=== PATIENT | female | born 1970 | race Caucasian/White ===

== ENCOUNTER 2019-05-16 13:17 | Outpatient (REF) | payer MEDICAID, SELFPAY ==
[2019-05-16 18:44] LABS: Anion Gap 11.6 mmol/L (3-11); BUN 9 mg/dL (7-18); CO2 25.4 mmol/L (21.0-32.0); CREATININE 0.66 mg/dL (0.55-1.02); Calcium 8.6 mg/dL (8.5-10.1); Chloride 105 mmol/L (98-107); Glucose 86 mg/dL (70-100); Potassium 4.4 mmol/L (3.5-5.1); Sodium 142 mmol/L (136-145)
== END 2019-05-16 13:37 ==
LOC: NCHCN 13:17
PROVIDERS: PCP Family Medicine; Visit Provider Family Medicine
DX: I10 Essential (primary) hypertension (principal)
CPT/HCPCS: 80048

== ENCOUNTER 2019-09-15 11:05 | Outpatient (CLI) | payer MEDICAID, SELFPAY ==
--- NOTE | 2019-09-15 10:05 | DI.RAD_ITS ---
EXAM: XR CHEST 2V PA LATERAL CLINICAL HISTORY: COUGH X 1 WEEK WITH ELEVATED TEMPERATURE TODAY, R05. TECHNIQUE: 2D digital imaging was performed. COMPARISON: No exams were available for comparison FINDINGS: LUNGS: Clear. No pleural abnormality seen. HEART: Normal. MEDIASTINUM: Normal. OTHER FINDINGS:Normal. IMPRESSION: No acute pulmonary findings.
== END 2019-09-15 11:25 ==
PROVIDERS: PCP Family Medicine; Visit Provider Nurse Practitioner Family
DX: R05 Cough (principal); R50.9 Fever, unspecified
CPT/HCPCS: 71046

== ENCOUNTER 2020-05-25 11:22 | Outpatient (REF) | payer MEDICAID, SELFPAY ==
[2020-05-25 15:36] LABS: Bilirubin Negative (Negative); Blood Small (Negative); Clarity Clear (Clear); Glucose Negative (Negative); Ketones Negative (Negative); Leukocyte Esterase Negative (Negative); Nitrite Negative (Negative); Specific Gravity 1.015 (1.005-1.025); Urobilinogen 0.2 EU/dL (Up TO 0.2)
[2020-05-25 15:51] LABS: WBC Negative HPF (0-5)
[2020-05-25 15:52] LABS: Bacteria Rare HPF (Negative); C & S Indicated? No; Crystals Negative HPF (Negative); Epithelial Cells Many HPF (Negative); Mucus Negative (Negative); RBC 0-2 HPF (0-2)
[2020-05-25 16:12] LABS: Anion Gap 6.9 mmol/L (3-11); BUN 11 mg/dL (7-18); CO2 27.1 mmol/L (21.0-32.0); CREATININE 0.63 mg/dL (0.55-1.02); Calcium 9.1 mg/dL (8.5-10.1); Calculated LDL 158 mg/dL (<100); Chloride 105 mmol/L (98-107); Cholesterol 235 mg/dL (<200); Glucose 110 mg/dL (74-106); HDL Cholesterol 35 mg/dL (40-60); Potassium 4.5 mmol/L (3.5-5.1); Sodium 139 mmol/L (136-145); TSH (W/Ref FT4) 1.03 uIU/mL (0.36-3.74); Triglyceride 211 mg/dL (<150)
[2020-05-25 16:19] LABS: Hemoglobin A1C 5.8 % (<5.7)
[2020-05-28 10:47] LABS: Hepatitis C Ab w Rflx HCV PCR Negative (Negative)
== END 2020-05-25 11:42 ==
LOC: NCHCN 11:22
PROVIDERS: PCP Family Medicine; Visit Provider Family Medicine
DX: I10 Essential (primary) hypertension (principal); E04.2 Nontoxic multinodular goiter; Z13.1 Encounter for screening for diabetes mellitus; Z13.220 Encounter for screening for lipoid disorders; Z11.59 Encounter for screening for other viral diseases; R31.21 Asymptomatic microscopic hematuria
CPT/HCPCS: 80048; 80061; 86803; 81003; 81015; 83036; 84443

== ENCOUNTER 2020-08-06 03:57 | Outpatient (CLI) | payer MEDICAID, SELFPAY ==
[2020-08-07 11:09] LABS: SARS-CoV-2 RNA Source Nasal/Nares
[2020-08-07 11:10] LABS: SARS-CoV-2 RNA Not Detected (NotDetected)
== END 2020-08-06 04:17 ==
PROVIDERS: PCP Family Medicine; Visit Provider Surgery
DX: Z11.59 Encounter for screening for other viral diseases (principal); Z01.818 Encounter for other preprocedural examination
CPT/HCPCS: U0003

== ENCOUNTER 2020-08-09 09:02 | Day surgery (SDC) | payer MEDICAID, SELFPAY ==
[2020-08-09 09:16] VITALS: BP 135/87; PULSE 99; RESP 20; TEMP 36.4; O2SAT 96
[2020-08-09] MEDS: Lactated Ringers 1,000 ML 80 ML IV (09:49)
--- NOTE | 2020-08-09 10:48 | BOWEL_PTH ---
PATIENT: Sugey Walls LOC: [facility] U#:[id number] AGE/SX: 50/F ROOM: RE08/09/[address]: Katia Chan : 1970 BED: DIS: 08/09/2020 SPEC #: [id number] RECD: 08/09/20 13:06 STATUS: JUS RE #: [id number] NISHA: 08/09/20 10:[address]: Katia Chan DEPT: Surgical Specimen RECD BY: Vandana Disla ENTERED: 08/09/20 13:06 SP TYPE: Bowel OTHR DR: Alfredo Szymanski Tissues: 1 - BIOPSY BOWEL Procedures: GROSS AND MICRO LEVEL 4 Comments: [id number] ([id number] [facility] [place]#)
--- NOTE | 2020-08-09 11:17 | PDOC.DSDIS_ITS ---
Discharge Plan Disposition Patient Disposition: HOME Condition: Good Discharge Details Reason For Visit: colon Attending Provider: Katia Chan Primary Care Provider: Alfredo Szymanski [place] Meds and New Rx's Prescriptions: Continued cetirizine 10 mg tablet 10 mg PO DAILY RF: 0 folic acid 1 mg tablet 1 mg PO DAILY RF: 0 cholecalciferol (vitamin D3) 5,000 UNIT tablet 5,000 unit PO DAILY RF: 0 cyclobenzaprine 10 MG tablet 10 mg PO HS RF: 0 acetaminophen 500 MG tablet 500 mg PO Q6H PRN RF: 0 gabapentin 600 MG tablet 1 tab PO TID 30 Days Qty: 90 RF: 5 venlafaxine [Effexor XR] 150 mg capsule,extended release 24hr 150 mg PO DAILY RF: 0 venlafaxine 75 mg capsule,extended release 24hr 75 mg PO DAILY RF: 0 propranolol 20 mg tablet 20 mg PO BID RF: 0 cyproheptadine 4 mg tablet 4 mg PO BID-TID PRNRF: 0 Aimovig Autoinjector 70 mg/mL auto-injector 70 mg subcut QMONTH RF: 0 riboflavin (vitamin B2) [Vitamin B-2] 100 mg tablet 100 mg PO QID RF: 0 magnesium 250 mg tablet 250 mg PO DAILY RF: 0 ibuprofen 800 mg tablet 800 mg PO TID RF: 0 fluticasone propionate [Flonase Allergy Relief] 50 mcg/actuation spray,suspension 1 spray NS DAILY RF: 0 meclizine [Antivert] 25 MG tablet 25 mg PO TID PRN (Reason: Dizziness) Qty: 10 RF: 0 ondansetron 4 MG tablet,disintegrating 4 mg PO QID PRN (Reason: Nausea) Qty: 15 RF: 0 Discontinued polyethylene glycol 3350 17 gram/dose powder 238 g PO ONCE Qty: 238 RF: 0 bisacodyl [Dulcolax (bisacodyl)] 5 mg tablet,delayed release (DR/EC) 5 mg PO ONCE Qty: 4 RF: 0 Discharge Instructions Additional Instructions: Findings: x3 very small polyp in rectal area. Follow up: will send a letter in 2-3 wks w/ the results of the polyp pathology and when to repeat the scope (5-10 yrs). Please call if you develop: fevers >101.5 Nausea or Vomiting Abdominal pain that is not transient DAY SURGERY UNIT POST COLONOSCOPY INSTRUCTIONS 1. Because there will be medication in your system for the next 24 hours, you may feel a little sleepy. Your coordination will be affected. Therefore: a. Do not drive or operate dangerous equipment for 24 hours. b. Do not drink alcohol beverages for 24 hours (not even beer). c. Plan to go home and rest for the day. 2. Generally there are no restrictions on your activity after a day or so has gone by, but you may feel a bit fatigued for a few days. 3 After you arrive home you may have a light meal and return to a normal diet as you can tolerate it without feeling sick to your stomach. 4. After surgery, you may feel pain or discomfort. This should be only transient, but if it persists please contact your doctor. 5. If there are any questions regarding the findings of your procedure, please feel free to contact your doctor. 6. If you are unable to contact your doctor with a problem, contact the hospital at [phone]. 7. Continue all your regular medications unless directed otherwise. I understand the above instructions and have no questions. Signature of Patient or Responsible Adult Escort Date/Time Name of Responsible Adult Escort Signature of Nurse Date/Time Activity:: no lifting over 20#'s or strenuous activity x 24 hrs Diet:: small light meals x 24 hrs Discharge Orders Discharge Orders: Discharge Order (Routine); Ordered 08/09/20 Ordered By: Katia Chan DS: Diagnosis Discharge Diagnosis (1) Colon cancer screening: Status: Acute
--- NOTE | 2020-08-09 11:21 | W.COLOREPORT ---
Date of service: 08/09/20 Time of Service: 11:21 Colonoscopy Report Date of procedure: 08/09/20 Pre-op diagnosis general: CRC screen Post-op diagnosis procedure note: other (x3 sm polyps HP VS adenomatous ) Procedure: ce cold polypcetomy x 3 Surgeon: Katia Chan Anesthesia proc note operative: GETA Estimated blood loss (mL): 1 Pathology: none sent Complications: None Disposition: same day Prep: Miralax/Dulcolax Retraction Time: 12 mins Procedure Description: After informed consent was obtained the patient was taken to the procedure room and placed in a left decubitous position. Monitors were applied and a time out was done. The patients name, date of , procedure, allergies to medications and metal in their body was reviewed. The patient was then sedated. Once sedated and comfortable a rectal exam was done. External exam shows external hemorrhoidal tags. Internal exam revealed a normal sphincter tone and no palpable masses. The scope was then introduced and retrofelexed. No internal hemorrhoids were identified. The scope was then advanced to the cecum w/polyps difficulty. The TI and appendiceal orifice were identified. The prep was good. The scope was then slowly retracted over 12 minutes back into the rectum. Polyps were removed: x3 small polyps removed in rectum-20cm region. These probably were HP's. No AVM's or diverticula. The Mucosa is otherwise pink and healthy. The scope was removed and the patient was woken up and taken back to Same day surgery in stable condition. The patient tolerated the procedure well and there were no immediate complications. Follow up: The patient should follow up in 5-10 years (path pd), unless they develop changes in bowel habits or other new gastrointestinal complaints.
[2020-08-09 11:38] VITALS: BP 112/79; PULSE 84; RESP 16; TEMP 36.8; O2SAT 98
== END 2020-08-09 12:20 | disposition home or self-care (01) ==
PROVIDERS: PCP Family Medicine; Visit Provider Surgery
PROC: 0DJD8ZZ Inspection of Lower Intestinal Tract, Via Natural or Artificial Opening Endoscopic (ICD-10-PCS; CPT 45378; principal; 2020-08-09 10:00)
DX: Z12.11 Encounter for screening for malignant neoplasm of colon (principal); K62.1 Rectal polyp; I10 Essential (primary) hypertension
CPT/HCPCS: 45380; 88305; J2001

== ENCOUNTER 2021-05-29 16:24 | Outpatient (REF) | payer MEDICAID, SELFPAY ==
[2021-05-29 19:57] LABS: BUN 11 mg/dL (7-18); CREATININE 0.8 mg/dL (0.55-1.02); Calcium 9.2 mg/dL (8.5-10.1); Chloride 106 mmol/L (98-107); Glucose 106 mg/dL (74-106); Potassium 4.5 mmol/L (3.5-5.1); Sodium 142 mmol/L (136-145)
[2021-05-29 20:02] LABS: Hemoglobin A1C 5.6 % (<5.7)
== END 2021-05-29 16:25 | disposition home or self-care (01) ==
LOC: NCHCN 16:24
PROVIDERS: PCP Family Medicine; Referring Provider Family Medicine; Visit Provider Family Medicine
DX: R73.09 Other abnormal glucose (principal); I10 Essential (primary) hypertension
CPT/HCPCS: 80048; 83036

== ENCOUNTER 2021-07-19 00:24 | Outpatient (CLI) | payer MEDICAID, SELFPAY ==
--- NOTE | 2021-07-19 | DI.MAMMO_ITS ---
Exam(s) MAMMO SCREENING EXAM: MAMMO SCREENING CLINICAL HISTORY: SCREENING, [facility],Z00.00. TECHNIQUE: Bilateral full field digital CC and MLO mammographic images were obtained with 3D tomosyn thesis and utilizing computer aided detection (CAD). COMPARISON: Prior outside mammogram performed June 2018 FINDINGS: There are no new spiculated masses nor malignant appearing microcalcification groups. There is no significant architectural distortion nor skin thickening-retraction. IMPRESSION: No radiographic evidence of malignancy. BI-RADS Category 1 - Negative Breast Density - Category B - Scattered areas of fibroglandular density Breast density Category C or D implies that the patient has dense breast tissue. Dense breast tissue can make it harder to find cancer on a mammogram. Dense breast tissue is also associated with an incr eased risk of breast cancer. This information about the result of the mammogram report was provided to the patient to raise their awareness. Use this report when you speak with the patient about their risks for breast cancer, which includes their family history. At that time, you may recommend additional screening tests (Ultrasoun d or MRI) as these tests may add significant information. A negative radiographic report should not delay biopsy if a dominant or clinically suspicious mass is present. Up to ten percent of cancers are not identified on mammography. A negative report may reinforce clinical impression. Adenosis and dense breasts may obscure an underlying neoplasm. False positive reports average 6 to 10%. Patient will receive a letter notifying them of these results.
== END 2021-07-19 00:44 ==
PROVIDERS: PCP Family Medicine; Visit Provider Family Medicine
DX: Z12.31 Encounter for screening mammogram for malignant neoplasm of breast (principal)
CPT/HCPCS: 77063; 77067

== ENCOUNTER 2022-01-07 00:36 | Outpatient (CLI) | payer MEDICAID, SELFPAY ==
--- NOTE | 2022-01-07 | DI.US_ITS ---
Exam(s) US THYROID EXAM: US THYROID CLINICAL HISTORY: MULTINODULAR THYROID GOITER E04.2, 2-3 MONTHS INCREASED FULLNESS LT. TECHNIQUE: Ultrasound thyroid performed using standard protocol. COMPARISON: US THYROID ULTRASOUND from 11/10/2011 FINDINGS: RIGHT THYROID LOBE: Measures 1.2 cm AP x 1.4 cm wide x 4.1 cm craniocaudal The right lobe contains 3 findings, all below the mid level of the gland. Nodule #1 . This is the largest and most inferiorly located in the right lobe . Size: Measures 0.9 x 0.6 x 0.7 cm Composition: Solid-2 point Echogenicity: Hypoechoic-2 points Shape: Wider than taller-0 points Margin: Ill-defined (due to the calcification) -0 points Echogenic Foci: Peripheral calcification 2 point Total Points for this nodule: 6 ACR Ti-Rads Category: TR4. This nodule can be followed given that it measures less than 1.5 cm. Nodule #2 . this is located just above the nodule described above and is similar in appearance with peripheral calcification but slightly smaller. Size: Measures 0.5 x 0.5 x 0.3 cm Composition: Solid-2 point Echogenicity: Hypoechoic- 2 points Shape: Wider than taller- 0 points Margin: Ill-defined due to calcification-0 points Echogenic Foci: Peripheral calcification-2 point Total points for this nodule: 6 ACR Ti-Rads Category: TR4. This nodule can be followed given that it measures less than 1.5 cm. Nodule #3 . This nodule in the right lobe is not calcified. It is solid and round. Size: Measures 0.5 x 0.5 x 0.3 cm Composition: Solid or almost completely solid- 2 points Echogenicity: Hypoechoic-2 points Shape: Wider than taller- 0 points Margin: Smooth-0 points Echogenic Foci: None-0 point Total points for this nodule: 4 ACR Ti-Rads Category: 4. This nodule can be followed. ISTHMUS: Normal thickness. There are no nodules in the isthmus. LEFT THYROID LOBE: Measures 1 cm AP x 1.4 wide x 4.3 cm craniocaudal Solitary solid nodule described below Nodule #1 Size: Measures 0.9 x 0.5 x 0.6 cm Composition: Solid-2 points Echogenicity: Hypoechoic-2 points Shape: Taller than wider-3 points Margin: Smooth-0 points Echogenic Foci: None-0 points Total points for this nodule: 7 ACR Ti-Rads Category: 5This nodule can be followed as it measures les s than 1 cm LYMPH NODES: There is no significant adenopathy. IMPRESSION: 1. Four nodules as described above, 3 in the right lobe and 1 in the left lobe. Classification for e ach of these nodules as described above. These nodules can be followed. Recommend repeat ultrasound in 1 year, earlier if clinically indicated. 2. There is no significant lymphadenopathy. DATA REPOSITORY:
== END 2022-01-07 00:56 ==
PROVIDERS: PCP Family Medicine; Visit Provider Family Medicine
DX: E04.2 Nontoxic multinodular goiter (principal)
CPT/HCPCS: 76536

== ENCOUNTER 2022-04-14 15:36 | Outpatient (REF) | payer MEDICAID, SELFPAY ==
--- NOTE | 2022-04-14 14:38 | PAPFT_PTH ---
PATIENT: Sugey Walls LOC: [facility] U#:[id number] AGE/SX: 51/F ROOM: RE04/14/[address]: Kezia Rojas : 1970 BED: DIS: 04/14/2022 SPEC #: [id number] RECD: 04/15/22 12:46 STATUS: JUS REQ #: [id number] NISHA: 04/14/22 14:[address]: Kezia Rojas DEPT: [facility] Cytology RECD BY: Vandana Disla ENTERED: 04/15/22 12:47 SP TYPE: PAPFT OTHR DR: Alfredo Szymanski Tissues: 1 - CX/ENDOCX FOR PAP SMEARS Procedures: PAP THIN PREP/UVM Screening HPV DNA PROBE Comments: [id number]
== END 2022-04-14 15:37 | disposition home or self-care (01) ==
LOC: NCHCN 15:36
PROVIDERS: PCP Family Medicine; Visit Provider Family Medicine
DX: Z01.419 Encounter for gynecological examination (general) (routine) without abnormal findings (principal)
CPT/HCPCS: 88142; 87624

== ENCOUNTER 2022-05-21 12:06 | Emergency (ER) | payer MEDICAID, SELFPAY ==
[2022-05-21] VITALS (33 sets, daily range): BP systolic 82–136; BP diastolic 43–83; PULSE 53–104; RESP 16; TEMP 36.5–36.6; O2SAT 91–99
[2022-05-21] MEDS: Normal Saline 500 ML 1000 ML IV ×2 (12:56→15:10)
[2022-05-21] MEDS: Prochlorperazine 10 MG/2 ML VIAL IVP (12:56)
[2022-05-21] MEDS: diphenhydrAMINE 50 MG/ML VIAL 25 MG IVP (12:56)
[2022-05-21 13:17] LABS: ALT 40 U/L (14-59); AST 21 U/L (15-37); Albumin 3.7 g/dL (3.4-5.0); Alkaline Phosphatase 71 U/L (46-116); Anion Gap 2.3 mmol/L (3-11); BUN 15 mg/dL (7-18); Bilirubin, Total 0.3 mg/dL (0.2-1.0); CO2 28.7 mmol/L (21.0-32.0); CREATININE 0.7 mg/dL (0.55-1.02); Calcium 8.5 mg/dL (8.5-10.1); Chloride 104 mmol/L (98-107); Glucose 129 mg/dL (74-106); Potassium 3.6 mmol/L (3.5-5.1); Sodium 135 mmol/L (136-145); Total Protein 7.5 g/dL (6.4-8.2)
--- NOTE | 2022-05-21 14:01 | W.ED.GENAD ---
Discharge Plan Disposition Patient Disposition: HOME Condition: Stable Discharge Details Clinical Impression: Migraine, Dizziness Primary Care Provider: Alfredo Szymanski ED Provider: Colten Leos Home Meds and New Rx's Prescriptions: Continued cetirizine 10 mg tablet 10 mg PO DAILY folic acid 1 mg tablet 1 mg PO DAILY cholecalciferol (vitamin D3) 5,000 UNIT tablet 5,000 unit PO DAILY acetaminophen 500 MG tablet 500 mg PO Q6H PRN PRN venlafaxine [Effexor XR] 150 mg capsule,extended release 24hr 150 mg PO DAILY propranolol 20 mg tablet 20 mg PO BID cyproheptadine 4 mg tablet 4 mg PO BID-TID PRN Aimovig Autoinjector 70 mg/mL auto-injector 70 mg subcut QMONTH riboflavin (vitamin B2) [Vitamin B-2] 100 mg tablet 100 mg PO DAILY magnesium 250 mg tablet 250 mg PO DAILY tizanidine 4 mg tablet 1 tab PO HS Label Comments: TAKE ONE TABLET BY MOUTH AT BEDTIME gabapentin 600 MG tablet 1 tab PO BID Rx Instructions: no abrupt cessation sumatriptan succinate 100 mg tablet 1 tab PO PRN PRN fluticasone propionate [Flonase Allergy Relief] 50 mcg/actuation spray,suspension 2 spray NS DAILY meclizine [Antivert] 25 MG tablet 25 mg PO TID PRN (Reason: Dizziness) Qty: 10 0RF Label Comments: has not needed ondansetron 4 MG tablet,disintegrating 4 mg PO QID PRN (Reason: Nausea) Qty: 15 0RF Discontinued cyclobenzaprine 10 MG tablet 10 mg PO HS Label Comments: changed by provider venlafaxine 75 mg capsule,extended release 24hr 75 mg PO DAILY ibuprofen 800 mg tablet 800 mg PO TID Label Comments: does not take Discharge Instructions Instructions: Migraine Headache (ED), Dizziness (ED) Additional Instructions: You received Compazine today. I am concerned that you had adverse reaction to this that lower your blood pressure. Please be sure to alert future caregivers of this potential adverse reaction. Please follow-up with your neurologist. Call tomorrow to arrange timely follow-up. Please contact your primary care physician to arrange follow-up. Return to the ER immediately for any worsening or new concerning symptoms. Referrals: Alfredo Szymanski [Primary Care Provider] - Discharge Data Discharge Date/Time-TO BE ENTERED AT DEPARTURE: 05/21/22 17:40 Medical Decision Making 1400 -- 52-year-old female with history of migraines with associated dizziness, followed by [facility] neurology, here with severe migraine with associated dizziness. Plan to treat with compazine IV and benadryl IV. Will give IVF bolus. 1530 -- Patient persistently hypotensive after compazine - suspect side effect of medication. Patient mentating well. Notes improved dizziness. Will give additional IVF bolus. Will check EKG. -- EKG was reviewed and interpreted by me: Please see report. Nondiagnostic. -- Patient was reassessed multiple times. Blood pressure improved. Patient was made aware of potential side effect of Compazine. Patient noted significant improvement in headache but requesting occipital block. Patient provided informed consent to occipital block and procedure was performed without complication, please see procedure note. Patient noted significant improvement after occipital block. Plan for discharge with outpatient follow-up with her neurologist. Disposition decision was made weighing the risks and benefits of hospitalization versus outpatient treatment, the risk for further decompensation, and the patient's wishes. The patient was stable and requested discharge. Prior to discharge, my usual and customary return precautions were reviewed with the patient - this included follow-up instructions and reason to return to the emergency department if condition worsens, does not improve as expected, or other new concerns arise. Lab Data Lab results reviewed: Yes I reviewed the patient's lab results. HPI General Mode of arrival: ambulatory. Date/Time Provider Initiated Documentation: 05/21/22 12:21. Limitations to Documentation: no limitations. Information obtained by: patient. HPI Narrative: 52-year-old female with history of migraine migraines at present with headache and vertigo, here with chief complaint of acute migraine. Patient notes she has had headache for the past 5 days. Patient describes pressure in her posterior head with associated dizziness. She states symptoms are exactly the same as prior migraines. She notes that typically her migraines respond to prescribed medications including Imitrex but sometimes are refractory as is the case today. Since the last time she had a headache this severe was about a year ago. Patient is followed by neurology at [facility] for her migraines. Patient feels TMJ is contributing to her symptoms. Related Data Home Medications Medication Instructions Recorded Confirmed meclizine 25 mg tablet (Antivert) 25 mg PO TID PRN Dizziness #10 tabs 07/05/21/22 ondansetron 4 mg disintegrating 4 mg PO QID PRN Nausea ##15 04/05/17 05/21/22 tablet cholecalciferol (vitamin D3) 125 5,000 unit PO DAILY 07/02/17 05/21/22 mcg (5,000 unit) tablet acetaminophen 500 mg tablet 500 mg PO Q6H PRN PRN 11/12/17 05/21/22 cetirizine 10 mg tablet 10 mg PO DAILY 07/26/18 05/21/22 fluticasone propionate 50 2 spray NS DAILY 07/26/18 05/21/22 mcg/actuation nasal spray,suspension (Flonase Allergy Relief) folic acid 1 mg tablet 1 mg PO DAILY 08/04/18 05/21/22 cyproheptadine 4 mg tablet 4 mg PO BID-TID PRN 07/11/20 05/21/22 erenumab-aooe 70 mg/mL 70 mg subcut QMONTH 07/11/20 05/21/22 subcutaneous auto-injector (Aimovig Autoinjector) magnesium 250 mg tablet 250 mg PO DAILY 07/11/20 05/21/22 propranolol 20 mg tablet 20 mg PO BID 07/11/20 05/21/22 riboflavin (vitamin B2) 100 mg 100 mg PO DAILY 07/11/20 05/21/22 tablet (Vitamin B-2) venlafaxine 150 mg 150 mg PO DAILY 07/11/20 05/21/22 capsule,extended release 24 hr (Effexor XR) gabapentin 600 mg tablet 1 tab PO BID 05/21/22 05/21/22 sumatriptan succinate 100 mg tablet 1 tab PO PRN PRN 05/21/22 05/21/22 tizanidine 4 mg tablet 1 tab PO HS 05/21/22 05/21/22 Previous Rx's Medication Instructions Recorded meclizine 25 mg tablet (Antivert) 25 mg PO TID PRN Dizziness #10 tabs 04/05/17 ondansetron 4 mg disintegrating 4 mg PO QID PRN Nausea ##15 04/05/17 tablet Allergies Allergy/AdvReac Type Severity Reaction Status Date / Time varenicline tartrate Allergy Severe suicidal Unverified 05/21/22 12:21 [From Chantix] thoughts oxycodone HCl Allergy Intermediate Itching Unverified 05/21/22 12:21 [From OxyContin] bupropion [From Wellbutrin] AdvReac Severe suicidal Unverified 05/21/22 12:21 thoughts hydrocodone [From Vicodin] AdvReac Intermediate Itching Unverified 05/21/22 12:21 prochlorperazine AdvReac Intermediate Other (See Verified 05/21/22 20:00 [From Compazine] Comment) [employer] Allergy Mild Uncoded 05/21/22 12:21 vinyl chloride AdvReac Intermediate Reynaud's Uncoded 05/21/22 12:21 Phenomenon General Stated Complaint: Headache CHADD: 3 Review of Systems All systems reviewed & are unremarkable except as noted in HPI and below Constitutional Constitutional: Denies fever(s) and Reports headache(s) ENT Ears, Nose, Mouth, and Throat: Reports vertigo and Reports headache(s) Cardiovascular Cardiovascular: Denies chest pain Neurologic Neurologic: Reports as per HPI, Reports vertigo and Reports headache(s) PFSH All Active Problems (Updated 05/21/22 @ 17:33 by Colten Leos MD) Migraine (Chronic) Dizziness (Acute) Hyperplastic colon polyp (Acute) Colon cancer screening (Acute) Hemorrhoids (Active) HNP (herniated nucleus pulposus), cervical (Chronic) Vertigo (Acute 07/16/17) Medical History Adult general medical exam Allergic rhinitis Anxiety Anxiety disorder, unspecified Arthralgia Asymptomatic microscopic hematuria Blood glucose abnormal Body mass index [BMI] 33.0-33.9, adult Cervical radiculopathy Dysuria Essential (primary) hypertension Female stress incontinence Fibromyalgia Generalized enlarged lymph nodes Hematuria Hemorrhoids History of ITP History of paresthesia Hypertension Immune thrombocytopenic purpura Pt. states she no longer has any issues from this Menopause Migraine equivalent Mixed incontinence Multinodular goiter Nicotine dependence, unspecified, in remission Obesity Occipital neuralgia Otalgia Paresthesia Post-traumatic stress disorder, unspecified PTSD (post-traumatic stress disorder) Raynauds syndrome TMJ derangement TMJ syndrome Oral Splint in place 24/y pt. states she must wear while under anesthesia Unspecified disturbances of skin sensation Urinary incontinence Vertigo Surgical History Biopsy, Lymph Node Hemorrhoidal Banding History of colonoscopy with polypectomy (~08/09/20) Family History Mother Diverticulosis of colon without diverticulitis Hypertension Thyroid disease Grandmother Colitis Father Diabetes Neuropathy Social History Smoking/Tobacco Use Status: Former Tobacco Use Quit Date: 10/11/10 Smoking risk assessment performed?: Yes Alcohol Intake: current Alcohol Intake frequency: holidays/special occasions only Alcohol type: wine Drug use: Occasionally Substance use type: marijuana Do you feel safe at home: Yes Do you feel safe in your relationship?: Yes Exam Const General: cooperative and no acute distress HENMT Mouth: moist mucous membranes Eyes Conjunctivae: normal conjunctivae Sclera: normal sclerae EOM: EOM intact bilaterally and nystagmus Neck Neck: trachea midline and supple Resp Auscultation: clear to auscultation bilaterally, no rales, no rhonchi and no wheezes Cardio Rate: regular rate and not tachycardic Rhythm: regular rhythm GI Palpation: soft, not firm, no guarding, no masses, not rigid and nontender Skin General skin exam: no rashes or lesions noted Neuro General: patient alert, patient awake, patient oriented x3 and tone normal Cranial Nerves: CN's II-XI intact bilaterally and nystagmus horizontal Cognition: normal cognition Speech: speech normal Motor: strength 5/5 throughout Sensory Exam: no sensory deficits noted Coordination: [id number] test normal, Romberg test normal and other (rapid alternating movement intact) Extrem General: no edema Psych Appearance: grossly normal Mental Status: mental status grossly normal Course Vital Signs Vital signs: Vital Signs Temperature 36.5 C 05/21/22 12:16 Pulse 74 05/21/22 12:16 Respiratory Rate 16 05/21/22 12:16 Blood Pressure 136/83 05/21/22 12:16 Pulse Oximetry 98 05/21/22 12:16 Temperature 36.5 C 05/21/22 12:16 Temperature Source Tympanic 05/21/22 12:16 Pulse 74 05/21/22 12:16 Respiratory Rate 16 05/21/22 12:16 Respiratory Effort Non-Labored 05/21/22 12:22 Blood Pressure 136/83 05/21/22 12:16 Blood Pressure Position Supine 05/21/22 12:16 Pulse Oximetry 98 05/21/22 12:16 Oxygen Delivery Method Room Air 05/21/22 12:16 Oxygen Flow Rate 0 05/21/22 12:16 Pain Level 5 05/21/22 13:44 Lab/Test Results Lab/Test Results: Laboratory Tests Range/Units 05/21/22 12:50 Sodium (136-145) mmol/L 135 L Potassium (3.5-5.1) mmol/L 3.6 Chloride (98-107) mmol/L 104 Carbon Dioxide (21.0-32.0) mmol/L 28.7 Anion Gap (3-11) mmol/L 2.3 L BUN (7-18) mg/dL 15 Creatinine (0.55-1.02) mg/dL 0.7 Est GFR (CKD-EPI 2020) (mL/min/1.73m2) 104.00 Glucose (74-106) mg/dL 129 H Calcium (8.5-10.1) mg/dL 8.5 Total Bilirubin (0.2-1.0) mg/dL 0.3 AST (15-37) U/L 21 ALT (14-59) U/L 40 Alkaline Phosphatase (46-116) U/L 71 Total Protein (6.4-8.2) g/dL 7.5 Albumin (3.4-5.0) g/dL 3.7 Procedures Nerve Block Nerve Block 1: Time out performed: Yes Local Anesthetic: Lidocaine 1% (2ml) and Bupivicaine 0.5% (2ml) Amount of anesthesia used (mL): 4 Nerve Blocks: occipital Procedure Successful: Yes Patient Tolerated Procedure: well Complications: none
[2022-05-21 14:44] LABS: Abs Immature Grans 0.03 10^3/uL (0.0-0.06); Absolute Basophil Count 0.05 10^3/uL (0.0-0.2); Absolute Eosinophil Count 0.15 10^3/uL (0.0-0.7); Absolute Lymphocyte Count 2.93 10^3/uL (1.2-3.4); Absolute Monocyte Count 0.93 10^3/uL (0.1-0.8); Absolute Neutrophil Count 3.58 10^3/uL (1.2-6.7); Basophils % 0.7; HCT 35.4 % (36.0-46.0); HGB 11.7 g/dL (11.2-15.7); Immature Grans % 0.4; Lymphocytes % 38.2; MCH 29.9 pg (27.0-33.0); MCHC 33.1 % (32.0-36.0); MCV 91 fL (80-95); MPV 10.1 fL (8.0-11.0); Monocytes % 12.1; Neutrophils % 46.6; Platelet Count 206 10^3/uL (130-400); RBC 3.91 10^6/uL (3.93-5.22); RDW-SD 39.6 fL; WBC 7.67 10^3/uL (4.4-10.8)
--- NOTE | 2022-05-21 15:15 | RT.EKG_ITS ---
APPROVED REPORT Exam: Resting ECG Reason for Exam: hypotension Patient Location: E HR:62 bpm ECG Measurements Heart Rate 62 AXIS GA 199 P 67 QRSd 76 QRS 45 QT 434 T 34 QTc 441 Conclusion Sinus rhythm...normal P axis, V-rate 60- 99 Probable left atrial enlargement...P >50mS, <-0.10mV V1
[2022-05-21 16:17] LABS: Troponin I < 50 ng/L (<or=60)
--- NOTE | 2022-05-21 17:13 | NUR.NOTE ---
Nursing Note: Pt up to BR, ambulatory, reports feeling dizzy after ambulating, bp 104/76, cont. to monitor, provider notified.
== END 2022-05-21 17:40 | disposition home or self-care (01) ==
PROVIDERS: Emergency Provider Student in an Organized Health Care Education/Training Program; PCP Family Medicine
DX: G43.909 Migraine, unspecified, not intractable, without status migrainosus (principal); R42 Dizziness and giddiness; I10 Essential (primary) hypertension; H55.00 Unspecified nystagmus; Z87.891 Personal history of nicotine dependence
CPT/HCPCS: 36415; 64405; 80053; 93005; 96361; 96374; 96375; 99284; 84484; 85025; 93010; J0780; J1200; J3490

== ENCOUNTER 2022-11-08 09:56 | Outpatient (CLI) | payer MEDICAID, SELFPAY ==
--- NOTE | 2022-11-08 13:15 | DI.RAD_ITS ---
Exam(s) XR CHEST 2V PA LATERAL EXAM: XR CHEST 2V PA LATERAL CLINICAL HISTORY: evaluate pneumonia TECHNIQUE: 2D digital imaging was performed. COMPARISON: CR XR CHEST 2V PA LATERAL from 09/15/2019 FINDINGS: HEART: Normal size. Aorta: Not dilated. PULMONARY VASCULATURE: Normal. LUNGS: Clear. PLEURAL SPACE: No pleural effusion or pneumothorax. BONE:Unremarkable for age. IMPRESSION: No acute abnormality. DATA REPOSITORY: RADIATION DOSE DELIVERED:
--- NOTE | 2022-11-08 13:43 | DI.VRAD_ITS ---
PROCEDURE INFORMATION: Exam: XR Chest Exam date and time: 11/08/2022 1:37 PM Age: 52 years old Clinical indication: Cough TECHNIQUE: Imaging protocol: Radiologic exam of the chest. Views: 2 views. COMPARISON: CR XR CHEST 2V PA LATERAL 09/15/2019 10:05 AM FINDINGS: Lungs: Unremarkable. No consolidation. Pleural spaces: Unremarkable. No pleural effusion. No pneumothorax. Heart/Mediastinum: Unremarkable. No cardiomegaly. Bones/joints: Unremarkable. IMPRESSION: No acute findings. Dictated and Authenticated by: Larry Tadeo MD. Ordering:NKECHI Sotelo MD
== END 2022-11-08 10:16 ==
PROVIDERS: PCP Family Medicine; Visit Provider Nurse Practitioner Family
DX: J06.9 Acute upper respiratory infection, unspecified (principal); R05.9 Cough, unspecified
CPT/HCPCS: 71046

== ENCOUNTER 2023-04-20 18:33 | Outpatient (REF) | payer MEDICAID, SELFPAY ==
[2023-04-20 19:49] LABS: CREATININE 0.7 mg/dL (0.55-1.02); Calculated LDL 150 mg/dL (<100); Cholesterol 248 mg/dL (<200); HDL Cholesterol 43 mg/dL (40-60); TSH (W/Ref FT4) 3.57 uIU/mL (0.36-3.74); Triglyceride 275 mg/dL (<150)
== END 2023-04-20 18:34 | disposition home or self-care (01) ==
LOC: NCHCN 18:33
PROVIDERS: PCP Family Medicine; Visit Provider Family Medicine
DX: E04.2 Nontoxic multinodular goiter (principal); I10 Essential (primary) hypertension; E78.2 Mixed hyperlipidemia
CPT/HCPCS: 80061; 82565; 84443

== ENCOUNTER → 2023-05-21 01:01 | Outpatient (CLI) | payer MEDICAID, SELFPAY ==
--- NOTE | 2023-05-21 | DI.CT_ITS ---
Exam(s) CT SINUS WO EXAM: CT SINUS WO CLINICAL HISTORY: SINUSITIS J32.9. Evaluate for sinusitis. TECHNIQUE: Imaging Protocol: Axial computed tomography images with coronal and sagittal reformatted images were created and reviewed. COMPARISON: No exams were available for comparison FINDINGS: AXIAL IMAGES: Frontal sinuses: Normally aerated. Ethmoid air cells: Normally aerated. Maxillary sinuses: Normally aerated. Sphenoid sinus: There is mild mucosal thickening in the sphenoid sinus on the right. The left spheno id sinus is clear. Ostiomeatal complexes: Patent. Osseous nasal septum: Midline. Visualized regional soft tissues: No acute findings. Orbits: Unremarkable. Bones: Unremarkable. Mastoid Air Cells: Normally aerated. IMPRESSION: Minimal mucosal thickening in the right sphenoid sinus. RADIATION DOSE DELIVERED: 109.41mGy.cm Total DLP 109.41mGy.cm Total DLP DATA REPOSITORY: All CT scans at this facility are submitted to the National Radiology Data Registry (NRDR) Dose Index Registry (DIR) with the [employer] (ACR). RADIATION OPTIMIZATION: All CT scans at this facility use at least one of these dose optimization te chniques: automated exposure control; mA and/or kV adjustment per patient size (includes targeted exa ms where dose is matched to clinical indication); or iterative reconstruction.
== END ==
PROVIDERS: PCP Family Medicine; Visit Provider Family Medicine
DX: J34.89 Other specified disorders of nose and nasal sinuses (principal)
CPT/HCPCS: 70486

== ENCOUNTER → 2023-07-03 02:42 | Outpatient (CLI) | payer MEDICAID, SELFPAY ==
--- NOTE | 2023-07-03 | DI.CTLCSR_ITS ---
Exam(s) CT CHEST LUNG CANCER SCREEN EXAM: CT CHEST LUNG CANCER SCREEN CLINICAL HISTORY: [facility],Z00.00,SMOKER IN REMISSION,F17.210 TECHNIQUE: Imaging Protocol: Axial computed tomography images with coronal and sagittal reformatted images were created and reviewed. Low dose screening protocol. COMPARISON: CR,XR XR CHEST 2V PA LATERAL from 11/08/2022 FINDINGS: Tracheobronchial tree: No bronchiectasis or mucus plugging.. Mediastinum and Serena: No dominant adenopathy or fluid collection. Pulmonary parenchyma: No consolidation or dominant measurable mass. Minimal emphysematous changes. Lung Nodules: A benign 3 millimeter perifissural nodule at right minor fissure. Few additional tiny nodules are seen, 3 millimeters or less. No suspicious nodules. Pleura: No effusion. No pneumothorax. Heart: The heart is not dilated. No coronary artery calcifications are seen. Aorta: Thoracic aorta non-dilated. Upper abdomen: Unremarkable. Bones: Degenerative changes in the thoracic spine. Soft Tissues: Unremarkable. IMPRESSION: No suspicious pulmonary nodules. Lung RADS Cat 2 - Benign Appearance / Behavior: Nodules with a very low likelihood of becoming a clin ically active cancer due to size or lack of growth Lung-RADS 1.0 CATEGORIES: Category 0 - Prior chest CT exam(s) being located for comparison. Category 1 - Annual screening in 12 months. No nodules or definitely benign nodules. Category 2 - Annual screening in 12 months. Benign appearance. Nodules with low likelihood of becomin g active cancer. Category 3 - 6-month follow-up. Probably benign. Short-term follow-up suggested. Nodules with low lik elihood of becoming active cancer. Category 4A - 3-month follow-up and CT/PET if >8 mm in size. Suspicious finding. Findings which requi re additional testing. Category 4B - Findings which require additional testing and tissue sampling. Category 4X - Category 3 or 4 nodules with additional features or imaging findings that increases the suspicion of malignancy. Modifier S- Potentially clinically significant findings (non lung cancer) RADIATION DOSE DELIVERED: Total DLP DATA REPOSITORY: All CT scans at this facility are submitted to the National Radiology Data Registry (NRDR) Dose Index Registry (DIR) with the [employer] (ACR). RADIATION OPTIMIZATION: All CT scans at this facility use at least one of these dose optimization te chniques: automated exposure control; mA and/or kV adjustment per patient size (includes targeted exa ms where dose is matched to clinical indication); or iterative reconstruction.
--- NOTE | 2023-07-03 | DI.US_ITS ---
Exam(s) US THYROID EXAM: US THYROID CLINICAL HISTORY: MULTINODULAR THYROID GOITER E04.2. TECHNIQUE: Ultrasound thyroid performed using standard protocol. COMPARISON: US THYROID ULTRASOUND from 11/10/2011 NM THYROID SCAN TECH from 12/24/2011 US US THYROID from 01/07/[address] CHEST LUNG CANCER SCREEN from 07/03/2023 FINDINGS: ISTHMUS: 2 mm RIGHT LOBE: Size: 4.4 x 1.0 x 1.8 cm Echogenicity: Normal. Vascularity: Normal. Nodules: 2 5 millimeter nodules, stable from 2012. Calcification again noted near lower pole. LEFT LOBE: Size: 3.6 x 0.8 by 1.3 cm Echogenicity: Normal. Vascularity: Normal. Nodules: Upper pole 1 x 0.7 x 0.6 centimeter solid, hypoechoic nodule smoothly marginated without ech ogenic foci. TR 4. It appears unchanged from 2021 but has increased in size since 2011 where it matthias sured 5 millimeters. OTHER FINDINGS: None. IMPRESSION: Right-sided nodules and calcification show no significant change from . Left upper pole nodule has mildly increased in size since 2011 and is likely benign. DATA REPOSITORY:
--- NOTE | 2023-07-03 10:40 | DI.MAMMO_ITS ---
Exam(s) MAMMO SCREENING EXAM: MAMMO SCREENING CLINICAL HISTORY: SCREENING FOR BREAST CANCER Z12.39 TECHNIQUE: Mammograms were interpreted according to the usual protocol including computer analysis w [employer] CAD system, tomosynthesis and C-view imaging. COMPARISON: 2017 and 2020 FINDINGS: The breasts are composed of scattered fibroglandular densities, Breast Density category B. No suspicious masses or suspicious microcalcifications are seen. No skin thickening or abnormal axillary lymph nodes are seen. There has been no significant change from prior exams. IMPRESSION: BI-RADS Category 1, Negative mammogram Yearly screening mammography is recommended. Breast Density - Category B, scattered fibroglandular densities. A negative radiographic report should not delay biopsy if a dominant or clinically suspicious mass is present. Up to ten percent of cancers are not identified on mammography. A negative report may reinforce clinical impression. Adenosis and dense breasts may obscure an underlying neoplasm. False positive reports average 6 to 10%. Patient will receive a letter notifying them of these results.
== END ==
PROVIDERS: PCP Family Medicine; Visit Provider Family Medicine
DX: Z12.31 Encounter for screening mammogram for malignant neoplasm of breast (principal); Z12.2 Encounter for screening for malignant neoplasm of respiratory organs; E04.2 Nontoxic multinodular goiter; F17.210 Nicotine dependence, cigarettes, uncomplicated
CPT/HCPCS: 71271; 77063; 77067; 76536

== ENCOUNTER 2023-07-06 15:09 | Outpatient (REF) | payer MEDICAID, SELFPAY ==
[2023-07-07 13:25] LABS: IgA 233 mg/dL (85-499); Interpretation (See Note); Tissue Transglutaminase IgA <1.2 U/mL (<4.0)
[2023-07-08 14:11] LABS: ESR (LRH) 31 mm/hr
== END 2023-07-06 15:10 | disposition home or self-care (01) ==
LOC: NCHCN 15:09
PROVIDERS: PCP Family Medicine; Visit Provider Family Medicine
DX: G43.109 Migraine with aura, not intractable, without status migrainosus (principal); R19.7 Diarrhea, unspecified
CPT/HCPCS: 82784; 83516; 85652

== ENCOUNTER 2023-08-06 09:03 | Outpatient (CLI) | payer MEDICAID, SELFPAY ==
[2023-08-06] MEDS: Levalbuterol HFA 15 GM INH 4 PUFF IH (11:36)
[2023-08-06] MEDS: Inhaler, Assist Device 1 EACH MC (11:37)
--- NOTE | 2023-08-07 08:45 | W.PFT ---
Date of service: 08/06/23 Time of Service: 10:00 Pulmonary Function Test Result Indications: Dyspnea Interpretation Spirometry: There is no airflow limitation. No significant bronchodilator response. Lung Volumes: Normal lung volumes Diffusion Capacity: Normal diffusion Airway Pressure: Normal resistance Impression Normal pulmonary function testing Clinical Correlation therefore is recommended.
== END 2023-08-06 09:04 | disposition home or self-care (01) ==
LOC: RT 09:04
PROVIDERS: PCP Family Medicine; Visit Provider Family Medicine
DX: J43.9 Emphysema, unspecified (principal)
CPT/HCPCS: 94060; 94726; 94729

== ENCOUNTER 2024-11-02 11:04 | Emergency (ER) | payer MEDICAID, SELFPAY ==
[2024-11-02] VITALS (9 sets, daily range): BP systolic 104–163; BP diastolic 49–104; PULSE 60–71; RESP 8–16; O2SAT 97–99
--- NOTE | 2024-11-02 11:00 | RT.EKG_ITS ---
APPROVED REPORT Exam: Resting ECG Reason for Exam: chest pain Patient Location: E HR:65 bpm ECG Measurements Heart Rate 65 AXIS [place] 183 P 0 QRSd 84 QRS 38 QT 392 T 36 QTc 408 Conclusion Sinus rhythm 65 normal axis no stemi
[2024-11-02 11:57] LABS: Abs Immature Grans 0.02 10^3/uL (0.0-0.06); Absolute Basophil Count 0.09 10^3/uL (0.0-0.2); Absolute Lymphocyte Count 3.07 10^3/uL (1.2-3.4); Absolute Monocyte Count 0.73 10^3/uL (0.1-0.8); Basophils % 1.2 %; Eosinophils % 3.8 %; HCT 41.8 % (36.0-46.0); HGB 13.7 g/dL (11.2-15.7); Immature Grans % 0.3 %; Lymphocytes % 39.3 %; MCH 29.1 pg (27.0-33.0); MCHC 32.8 % (32.0-36.0); MCV 89 fL (80-95); MPV 9.8 fL (8.0-11.0); Monocytes % 9.3 %; Neutrophils % 46.1 %; Platelet Count 313 10^3/uL (130-400); RDW 11.7 % (11.7-14.6); RDW-SD 37.8 fL; WBC 7.81 10^3/uL (4.4-10.8)
--- NOTE | 2024-11-02 12:04 | ED.GENADUL_ITS ---
Discharge Plan Disposition Patient Disposition: Home Condition: Stable Discharge Details Clinical Impression: Chest pain, Migraine Primary Care Provider: Malini Peterson ED Provider: Heidi Lunsford Home Meds and New Rx's Prescriptions: No Action cetirizine 10 mg tablet 10 mg PO DAILY venlafaxine 37.5 mg capsule,extended release 24hr 37.5 mg PO DAILY venlafaxine 75 mg capsule,extended release 24hr 75 mg PO DAILY topiramate [Topamax] 25 mg capsule, sprinkle 25 mg PO BID Rx Instructions: QHS cholecalciferol (vitamin D3) 5,000 UNIT tablet 5,000 unit PO DAILY acetaminophen 500 MG tablet 500 mg PO Q6H PRN PRN Aimovig Autoinjector 70 mg/mL auto-injector 70 mg subcut QMONTH riboflavin (vitamin B2) [Vitamin B-2] 100 mg tablet 100 mg PO DAILY gabapentin 600 mg tablet 600 mg PO TID Rx Instructions: no abrupt cessation propranolol 20 mg tablet 10 mg PO BID magnesium 250 mg tablet 400 mg PO DAILY sumatriptan succinate 100 mg tablet 100 mg PO PRN PRN tizanidine 4 mg capsule 4 mg PO QHS PRN Aimovig Autoinjector 140 mg/mL auto-injector 140 mg subcut QMONTH lamotrigine [Lamictal] 100 mg tablet 100 mg PO DAILY oxcarbazepine 150 mg tablet 150 mg PO BID fluticasone propionate [Flonase Allergy Relief] 50 mcg/actuation spray,suspension 2 spray NS DAILY ondansetron 4 MG tablet,disintegrating 4 mg PO QID PRN (Reason: Nausea) Qty: 15 0RF Discharge Instructions Instructions: Chest Pain (DC) Additional Instructions: Your lab work and EKG are very reassuring that the pain you are feeling is unlikely to be caused by a heart attack. Please continue your regular migraine headache management, stay hydrated and follow-up with your PCP If you develop pain in your chest that occurs after exertion, it is severe pain, associated with shortness of breath or vomiting, please return to the emergency department for reevaluation. HPI General Date/Time Provider Initiated Documentation: 11/02/24 11:40 . Limitations to Documentation: no limitations . Information obtained by: patient . HPI Narrative: 54-year-old female with past medical history of migraine headaches presents for evaluation of chest pain. She reports that she has been having migraine symptoms for the last 4 days and having a lot of significant personal stress and issues at home. That she reports that 2 days ago she started having some chest pressure. Associated with a sense of heaviness. No radiation. No significant shortness of breath. She states that her migraine headaches have been minimally relieved with her usual medications. She not having any vomiting. She reports that she has had intermittent chest pain throughout her life, but has never been evaluated for chest pain. She denies smoking. Denies diabetes history. Denies significant family history. She denies any worsening of her chest pain with exertion Related Data Home Medications ?Medication ?Instructions ?Recorded ?Confirmed ondansetron 4 mg disintegrating 4 mg PO QID PRN Nausea ##15 04/05/17 11/02/24 tablet cholecalciferol (vitamin D3) 125 5,000 unit PO DAILY 07/02/17 11/02/24 mcg (5,000 unit) tablet acetaminophen 500 mg tablet 500 mg PO Q6H PRN PRN 11/12/17 11/02/24 cetirizine 10 mg tablet 10 mg PO DAILY 07/26/18 11/02/24 fluticasone propionate 50 2 spray NS DAILY 07/26/18 11/02/24 mcg/actuation nasal spray,suspension (Flonase Allergy Relief) erenumab-aooe 70 mg/mL 70 mg subcut QMONTH 07/11/20 11/02/24 subcutaneous auto-injector (Aimovig Autoinjector) riboflavin (vitamin B2) 100 mg 100 mg PO DAILY 07/11/20 11/02/24 tablet (Vitamin B-2) topiramate 25 mg sprinkle capsule 25 mg PO BID 02/20/23 11/02/24 (Topamax) venlafaxine 37.5 mg 37.5 mg PO DAILY 05/15/23 11/02/24 capsule,extended release 24 hr venlafaxine 75 mg capsule,extended 75 mg PO DAILY 05/15/23 11/02/24 release 24 hr erenumab-aooe 140 mg/mL 140 mg subcut QMONTH 07/25/24 11/02/24 subcutaneous auto-injector (Aimovig Autoinjector) gabapentin 600 mg tablet 600 mg PO TID 07/25/24 11/02/24 lamotrigine 100 mg tablet 100 mg PO DAILY 07/25/24 11/02/24 (Lamictal) magnesium 250 mg tablet 400 mg PO DAILY 07/25/24 11/02/24 oxcarbazepine 150 mg tablet 150 mg PO BID 07/25/24 11/02/24 propranolol 20 mg tablet 10 mg PO BID 07/25/24 11/02/24 sumatriptan succinate 100 mg tablet 100 mg PO PRN PRN 07/25/24 11/02/24 tizanidine 4 mg capsule 4 mg PO QHS PRN 07/25/24 11/02/24 Previous Rx's ?Medication ?Instructions ?Recorded ondansetron 4 mg disintegrating 4 mg PO QID PRN Nausea ##15 04/05/17 tablet Allergies Allergy/AdvReac Type Severity Reaction Status Date / Time varenicline tartrate (From Allergy Severe suicidal Unverified 11/02/24 11:27 Chantix) thoughts oxycodone HCl (From Allergy Intermediate Itching Unverified 11/02/24 11:27 OxyContin) bupropion (From Wellbutrin) AdvReac Severe suicidal Unverified 11/02/24 11:27 thoughts hydrocodone (From Vicodin) AdvReac Intermediate Itching Unverified 11/02/24 11:27 prochlorperazine (From AdvReac Intermediate Other (See Verified 11/02/24 11:27 Compazine) Comment) vinyl chloride AdvReac Intermediate Reynaud's Uncoded 11/02/24 11:27 Phenomenon General Stated Complaint: Chest Pain CHADD: 3 Exam Narrative Exam Narrative: Review of Systems: All systems reviewed & are unremarkable except as noted in HPI and below Well-developed, no acute distress NCAT PERRL, normal conjunctiva RRR no murmur Unlabored respiratory effort CTAB Nondistended abdomen soft non tender Extremities w/o edema no focal neurologic deficits Course Vital Signs Vital signs: Vital Signs Pulse 71 11/02/24 11:19 Respiratory Rate 15 11/02/24 11:19 Blood Pressure 141/86 H 11/02/24 11:19 Pulse Oximetry 97 11/02/24 11:19 Temperature Source Oral 11/02/24 11:19 Pulse 71 11/02/24 11:19 Respiratory Rate 15 11/02/24 11:19 Blood Pressure 141/86 H 11/02/24 11:19 Blood Pressure Position Sitting 11/02/24 11:19 Pulse Oximetry 97 11/02/24 11:19 Oxygen Delivery Method Room Air 11/02/24 11:19 Oxygen Flow Rate 0 11/02/24 11:19 Lab/Test Results Lab/Test Results: Laboratory Tests Range/Units 11/02/24 11:48 WBC (4.4-10.8) 10^3/uL 7.81 RBC (3.93-5.22) 10^6/uL 4.70 Hgb (11.2-15.7) g/dL 13.7 Hct (36.0-46.0) % 41.8 MCV (80-95) fL 89 MCH (27.0-33.0) pg 29.1 MCHC (32.0-36.0) % 32.8 RDW (11.7-14.6) % 11.7 Plt Count (130-400) 10^3/uL 313 MPV (8.0-11.0) fL 9.8 Immature Gran % % 0.3 Neutrophils % % 46.1 Lymphocytes % % 39.3 Monocytes % % 9.3 Eosinophils % % 3.8 Basophils % % 1.2 Nucleated RBC % (0.0-0.3) % 0.0 Absolute Neutrophils (1.2-6.7) 10^3/uL 3.60 Absolute Lymphocytes (1.2-3.4) 10^3/uL 3.07 Absolute Monocytes (0.1-0.8) 10^3/uL 0.73 Absolute Eosinophils (0.0-0.7) 10^3/uL 0.30 Absolute Basophils (0.0-0.2) 10^3/uL 0.09 Medical Decision Making Emergent evaluation of chest pain. The patient EKG at triage was reviewed. There is a delay in getting the EKG from the patient because she went to the bathroom after registration. However the EKG independently interpreted: Sinus [address] normal axis no acute ST segment changes. She has no risk factors for ACS and her symptoms do not seem entirely consistent with a cardiac presentation. Would consider stress versus migraine equivalent we will suspicion for hypertensive emergency or aortic emergency. Will get blood work to evaluate including serial troponins. Given her ongoing migrainous symptoms, will give a dose of IV magnesium as well to assist. On reevaluation, headache symptoms have improved after IV medications. Her troponin level was undetectable. Given her high sensitivity assay and the duration of her chest pain, and the fact that she is very low risk no additional troponins are needed. At this time recommend stress management, continued headache therapy and follow-up with PCP for any ongoing issues. Return precautions advised. Quality:SDOH Health Related Social Needs: No Data to Display PFSH All Active Problems (Updated 11/02/24 @ 12:42 by Heidi Lunsford MD) Migraine (Chronic) Chest pain (Acute) Referred otalgia (Acute) Jaw pain (Acute) Facial pressure (Acute) Headache (Acute) Snoring (Acute) Hyperplastic colon polyp (Acute) Colon cancer screening (Acute) Hemorrhoids (Active) HNP (herniated nucleus pulposus), cervical (Chronic) Vertigo (Acute 07/16/17) Medical History Prediabetes Chronic sinusitis, unspecified Adult general medical exam Nicotine dependence, unspecified, in remission Unspecified disturbances of skin sensation Female stress incontinence Post-traumatic stress disorder, unspecified Anxiety disorder, unspecified Body mass index [BMI] 33.0-33.9, adult Blood glucose abnormal Mixed incontinence Occipital neuralgia Menopause Allergic rhinitis TMJ derangement Migraine equivalent Hypertension History of paresthesia Asymptomatic microscopic hematuria Immune thrombocytopenic purpura Pt. states she no longer has any issues from this Urinary incontinence Anxiety Paresthesia Arthralgia Otalgia History of ITP Obesity Essential (primary) hypertension Raynauds syndrome TMJ syndrome Oral Splint in place 24/y pt. states she must wear while under anesthesia Cervical radiculopathy Generalized enlarged lymph nodes Multinodular goiter Hematuria Dysuria PTSD (post-traumatic stress disorder) Fibromyalgia Hemorrhoids Vertigo Surgical History History of colonoscopy with polypectomy (~08/09/20) Hemorrhoidal Banding Biopsy, Lymph Node Family History Mother Diverticulosis of colon without diverticulitis Hypertension Thyroid disease Grandmother Colitis Father Diabetes Neuropathy Social History Smoking/Tobacco Use Status: Former Tobacco Use Quit Date: 10/11/10 Smoking risk assessment performed?: Yes Alcohol Intake: current Alcohol Intake frequency: holidays/special occasions only Alcohol type: wine Drug use: Occasionally Substance use type: marijuana Do you feel safe at home: Yes Do you feel safe in your relationship?: Yes
[2024-11-02 12:13] LABS: ALT 47 U/L (14-59); AST 21 U/L (15-37); Alkaline Phosphatase 81 U/L (46-116); Anion Gap 5.1 mmol/L (3-11); BUN 14 mg/dL (7-18); Bilirubin, Total 0.32 mg/dL (0.2-1.0); CO2 30.9 mmol/L (21.0-32.0); CREATININE 0.7 mg/dL (0.55-1.02); Calcium 9.6 mg/dL (8.5-10.1); Chloride 106 mmol/L (98-107); Estimated GFR 102.71 (mL/min/1.73m2); Glucose 95 mg/dL (74-106); Potassium 4.1 mmol/L (3.5-5.1); Sodium 142 mmol/L (136-145); Total Protein 7.9 g/dL (6.4-8.2)
[2024-11-02 12:15] LABS: Troponin I < 4 ng/L (<or=51)
[2024-11-02] MEDS: Aspirin 81 MG CHEW 324 MG CH (12:15)
[2024-11-02] MEDS: Ketorolac 15 MG/ML VIAL 10 MG IVP (12:15)
[2024-11-02] MEDS: MAGNESIUM SULFATE 2 GM/50 ML BAG IVINF (12:16)
== END 2024-11-02 13:18 | disposition home or self-care (01) ==
PROVIDERS: Emergency Provider Emergency Medicine; PCP Nurse Practitioner Family
DX: R07.9 Chest pain, unspecified (principal); G43.909 Migraine, unspecified, not intractable, without status migrainosus
CPT/HCPCS: 80053; 93005; 96365; 96375; 99284; 84484; 85025; 93010; J1885; J3475

== ENCOUNTER 2024-12-12 01:47 | Outpatient (CLI) | payer MEDICAID, SELFPAY ==
--- NOTE | 2024-12-12 | DI.US_ITS ---
Exam(s) US THYROID EXAM: US THYROID CLINICAL HISTORY: MULTINODULAR GOITER E04.2. TECHNIQUE: Ultrasound thyroid performed using standard protocol. COMPARISON: CT CT CHEST LUNG CANCER SCREEN from 07/03/2023 US US THYROID from 07/03/2023 FINDINGS: Findings appear similar to prior ultrasound of June 2023. There are again noted 3 findings in the right lobe, 1 of which is a heavy calcification in the other 2 are nodules as described below. Ther e is a single nodule again noted in the left lobe, similar to previous. RIGHT THYROID LOBE: Measures 1.2 cm AP x 1.6 cm wide x 4.9 cm craniocaudal Nodule #1 Size: Measures 0.5 x 0.3 x 0.4 cm Composition: Solid-2 points Echogenicity: Hypoechoic-2 points Shape: Wider than taller-0 points Margin: Smooth- 0 points Echogenic Foci: Contains punctate echogenic foci Total Points for this nodule: 7 ACR Ti-Rads Category: TR5 Although this is a TR 5 level nodule, it measures less than 1 cm and therefore can be followed. Nodule #2 Size: Measures 0.5 x 0.5 x 0.5 cm Composition: Solid-2 points Echogenicity: Hypoechoic- 2 points Shape: Wider than taller- 0 points Margin: Smooth-0 points Echogenic Foci: Exhibits peripheral calcification-2 points Total points for this nodule: 6 ACR Ti-Rads Category: TR4 This TR 4 level nodule measures less than 1.5 cm and therefore can be followed. ISTHMUS: Normal thickness. There are no nodules in the isthmus. LEFT THYROID LOBE: Measures 0.8 cm AP x 1.5 wide x 4.3 cm craniocaudal Nodule #1 Size: Measures 1.0 x 0.7 x 0.9 cm Composition: Solid-2 points Echogenicity: Hypoechoic-2 points Shape: Wider than taller-0 points Margin: Smooth-0 points Echogenic Foci: None-0 points Total points for this nodule: 4 ACR Ti-Rads Category: 4 This TR 4 level nodule measures less than 1.5 cm and therefore can be followed. LYMPH NODES: There is no significant adenopathy. IMPRESSION: 1. Bilateral nodules again noted which appear relatively stable when compared to prior ultrasound of June 2023. 2. Nodules are graded as above, none of which require ultrasound-guided biopsy at this time 3. There is no significant lymphadenopathy. DATA REPOSITORY:
== END 2024-12-12 02:07 ==
LOC: DI 01:48
PROVIDERS: PCP Nurse Practitioner Family; Visit Provider Nurse Practitioner Family
DX: E04.2 Nontoxic multinodular goiter (principal)
CPT/HCPCS: 76536

== ENCOUNTER 2025-06-13 07:54 | Outpatient (CLI) | payer MEDICAID, SELFPAY ==
[2025-06-14 19:15] LABS: Adrenocorticotropic Hormone, P 11 pg/mL
== END 2025-06-13 07:55 | disposition home or self-care (01) ==
LOC: LBO 07:54
PROVIDERS: PCP Nurse Practitioner Family; Visit Provider Nurse Practitioner Family
DX: R79.89 Other specified abnormal findings of blood chemistry (principal)
CPT/HCPCS: 36415; 82533; 82024

== ENCOUNTER 2025-06-20 14:12 | Outpatient (REF) | payer MEDICAID, SELFPAY ==
--- NOTE | 2025-06-20 13:30 | PAPFT_PTH ---
PATIENT: Sugey Walls LOC: [facility] U#:[id number] AGE/SX: 55/F ROOM: RE06/20/[address]: Doris Pérez DO : 1970 BED: DIS: 06/20/2025 SPEC #: [id number] RECD: 06/20/25 18:19 STATUS: JUS REQ #: [id number] NISHA: 06/20/25 13:[address]: Doris Pérez DEPT: [facility] Cytology RECD BY: Vandana Disla ENTERED: 06/20/25 18:19 SP TYPE: PAPFT OTHR DR: Malini Peterson Tissues: 1 - CX/ENDOCX FOR PAP SMEARS Procedures: PAP THIN PREP/UVM Screening HPV DNA PROBE Comments: [id number] (HPV 16 & 18/45)
== END 2025-06-20 14:13 | disposition home or self-care (01) ==
LOC: LBN 14:12
PROVIDERS: PCP Nurse Practitioner Family; Visit Provider Obstetrics & Gynecology
DX: Z12.4 Encounter for screening for malignant neoplasm of cervix (principal)
CPT/HCPCS: 88142; 87624

== ENCOUNTER 2025-06-28 01:58 | Outpatient (CLI) | payer MEDICAID, SELFPAY ==
--- NOTE | 2025-06-28 | DI.MAMMO_ITS ---
Exam(s) MAMMO SCREENING EXAM: MAMMO SCREENING CLINICAL HISTORY: SCREENING MAMMO Z12.31. TECHNIQUE: Bilateral full field digital CC and MLO mammographic images were obtained with 3D tomosynthesis and utilizing computer aided detection (CAD). COMPARISON: Prior mammograms were reviewed. FINDINGS: There has been no significant change in the appearance and distribution of the fibroglandular tissue. There are no CAD designations. There are no new spiculated masses nor malignant appearing microcalcification groups. There is no significant architectural distortion nor skin thickening-retraction. IMPRESSION: No radiographic evidence of malignancy. BI-RADS Category 1 - Negative Breast Density - Category B - There are scattered areas of fibroglandular density. Breast density Category C or D implies that the patient has dense breast tissue. Dense breast tissue can make it harder to find cancer on a mammogram. Dense breast tissue is also associated with an increased risk of breast cancer. This information about the result of the mammogram report was provided to the patient to raise their awareness. Use this report when you speak with the patient about their risks for breast cancer, which includes their family history. At that time, you may recommend additional screening tests (Ultrasound or MRI) as these tests may add significant information. A negative radiographic report should not delay biopsy if a dominant or clinically suspicious mass is present. Up to ten percent of cancers are not identified on mammography. A negative report may reinforce clinical impression. Adenosis and dense breasts may obscure an underlying neoplasm. False positive reports average 6 to 10%. Patient will receive a letter notifying them of these results.
--- NOTE | 2025-06-28 | DI.US_ITS ---
Exam(s) US ABDOMEN LIMITED EXAM: US ABDOMEN LIMITED CLINICAL HISTORY: ELEVATED ALT MEASUREMENT R74.01 TECHNIQUE: Ultrasound abdomen performed using standard protocol. COMPARISON: FINDINGS: There is no ascites evident. LIVER: There is diffusely hyperechoic indicating steatosis. There is a benign cyst in the anterior aspect the left hepatic lobe which measures 10 x 6 mm. No other focal liver findings. GALLBLADDER/BILIARY: There are no gallstones. No gallbladder wall edema nor pericholecystic fluid. The common hepatic duct isnot dilated, measuring 3-4mm at the level of gaviota hepatis. PANCREAS: There is no evidence of pancreatic mass nor dilatation of the pancreatic duct. RIGHT KIDNEY:No evidence of solid mass, calculus, nor hydronephrosis. No cortical cysts evident. IMPRESSION: 1. No evidence of cholelithiasis nor dilatation of the biliary tree. 2. Hepatic steatosis. There is also a benign 10 x 6 mm cyst in the left hepatic lobe. This does not require further imaging workup. 3. There no other right upper quadrant ultrasound findings and there is no ascites evident.. DATA REPOSITORY:
== END 2025-06-28 02:18 ==
LOC: DI 01:58
PROVIDERS: PCP Nurse Practitioner Family; Visit Provider Nurse Practitioner Family
DX: Z12.31 Encounter for screening mammogram for malignant neoplasm of breast (principal); R74.01 Elevation of levels of liver transaminase levels; K76.0 Fatty (change of) liver, not elsewhere classified
CPT/HCPCS: 77063; 77067; 76705

== ENCOUNTER 2025-07-14 03:07 | Outpatient (CLI) | payer MEDICAID, SELFPAY ==
--- NOTE | 2025-07-14 06:00 | DI.US_ITS ---
Exam(s) US PELVIS TRANSVAGINAL EXAM: US PELVIS TRANSVAGINAL CLINICAL HISTORY: pap with endometrial cells,abnl pap smear,[id number] TECHNIQUE: Transabdominal and transvaginal imaging was performed using standard protocol. COMPARISON: No exams were available for comparison FINDINGS: UTERUS: Anteverted. 5.5 x 3.3 x 3.5 cm Endometrium: Not well seen. Measured at 4 mm Myometrium: Unremarkable. Cervix: Nabothian cysts. OVARIES: Right: Cyst or mass: None. Left: Cyst or mass: None. DOPPLER: Color: Symmetric and uniform flow to both ovaries. No hyperemia. CUL-DE-SAC: Free fluid: None. IMPRESSION: 1. Normal-appearing uterus with endometrial stripe within normal limits. 2. Unremarkable bilateral ovaries. DATA REPOSITORY:
== END 2025-07-14 03:27 ==
LOC: DI 03:07
PROVIDERS: PCP Nurse Practitioner Family; Visit Provider Obstetrics & Gynecology
DX: R87.619 Unspecified abnormal cytological findings in specimens from cervix uteri (principal)
CPT/HCPCS: 76830; 76856